=== PATIENT | female | born 1955 | race Caucasian/White ===

== ENCOUNTER → 2017-07-18 | Outpatient (CLI) | payer OTHER ==
[~2017-07-18] MED LIST: ALPRAZOLAM0.25 MG PO; AMLODIPINE BESYL5 MG PO; OMEPRAZOLE40 MG PO; ULTRAM 50MG50 MG PO
--- NOTE | 2017-07-19 07:22 | Diagnostic Imaging Report ---
Exam: Lumbar spine MRI without IV contrast History: Low back pain radiculopathy. Comparison studies: None Technique: Sagittal and axial T2 , sagittal T1 and IR, axial spin density oblique. Intravenous contrast: None Findings: Number of lumbar vertebral bodies: 5. Alignment: Mild hyperlordotic curvature with mild thoracolumbar curvature convex to the left. Minimal grade 1 degenerative retrolisthesis of L1 on 2 and L2 on L3. Soft tissues: No T2 hyperintense inflammatory changes. Paraspinal muscles: Mild symmetric atrophy. Lower thoracic cord: Normal in signal and morphology. The tip of the conus is at the inferior L1 level. Cauda equina: No masses. No arachnoiditis. Vertebrae: No compression fractures, infection or neoplasm. Degenerative changes: T10-T11 through T12-L1: Mildly degenerated disks. Small disc bulges at T11-T12 and at T12-L1 indented thecal sac without significant canal stenosis. Patent foramina. L1-L2: Moderately degenerated disc with associated degenerative endplate changes and mild marrow endplate edema. Minimal retrolisthesis of L1 on L2 with associated uncovered disc/disc bulge and mild facet arthrosis result in mild canal and bilateral foraminal stenosis. There are small facet effusions bilaterally. L2-L3: Mildly degenerated disc. Minimal retrolisthesis of L2 on L3 with associated uncovered disc/disc bulge asymmetric to the right, 7 mm x 5 mm x 10 mm (SI x AP x TV) right subarticular disc extrusion, mildly thickened ligamenta flava and mild facet arthrosis result in mild canal stenosis and mild right foraminal stenosis. Disc extrusion is in position to compress the right L3 nerve root. L3-L4: Mild loss of T2 disc signal. Symmetric disc bulge, thickened ligamentum flavum and facet arthrosis with mild canal stenosis. No significant foraminal stenosis. L4-L5: Mild loss of T2 disc signal. Symmetric disc bulge, moderately thickened ligamentum flavum and moderate bilateral facet arthrosis with severe canal stenosis, severe left foraminal stenosis and mild right foraminal stenosis. Facet arthrosis is with associated bilateral facet synovitis, slightly greater on the left from there is associated reactive marrow edema in the left L4 and L5 articulating pillars and pedicles. L5-S1: Moderately degenerated disc. Minimal grade 1 retrolisthesis of L5 on S1 with associated disc osteophyte complex, 6 mm x 7 mm x 14 mm (SI x AP x TV) calcified central disc extrusion and facet arthrosis with moderate bilateral foraminal stenosis. No significant canal stenosis or nerve root impingement. IMPRESSION: 1. Multilevel disc degeneration, worse/moderate at L1-L2 and at L5-S1. 2. Severe degenerative canal stenosis at L4-L5. 3. Disc extrusion at L2-L3 position to compress the right L3 nerve root. 4. Severe degenerative foraminal stenosis on the left at L4-L5, moderate degenerative foraminal stenosis bilaterally at L5-S1. 5. Multilevel facet arthrosis, worse at L4-L5 where there is associated facet synovitis. Signed by: Dr. Robert Bethea M.D. on 07/19/2017 7:18 AM
== END ==
LOC: MRI 09:46
PROVIDERS: ATTEND Family Medicine
DX: M54.16 Radiculopathy, lumbar region (principal); M47.26 Other spondylosis with radiculopathy, lumbar region
CPT/HCPCS: 72148

== ENCOUNTER → 2018-08-19 | Outpatient (CLI) | payer OTHER | LOC: MAMMO 13:54 | PROVIDERS: ATTEND Family Medicine | DX: Z12.31 Encounter for screening mammogram for malignant neoplasm of breast (principal) | CPT/HCPCS: 77067 ==

== ENCOUNTER → 2020-04-14 | Outpatient (CLI) | payer OTHER | LOC: MAMMO 12:23 | PROVIDERS: ATTEND Family Medicine | DX: Z12.31 Encounter for screening mammogram for malignant neoplasm of breast (principal) | CPT/HCPCS: 77067 ==

== ENCOUNTER → 2021-05-22 | Outpatient (CLI) | payer OTHER | LOC: MAMMO 08:37 | PROVIDERS: ATTEND Family Medicine | DX: Z12.31 Encounter for screening mammogram for malignant neoplasm of breast (principal) | CPT/HCPCS: 77067 ==

== ENCOUNTER → 2023-07-08 | Outpatient (REF) | payer MEDICARE, OTHER | LOC: MAMMO 08:05 | PROVIDERS: ATTEND Family Medicine | DX: Z12.31 Encounter for screening mammogram for malignant neoplasm of breast (principal) | CPT/HCPCS: 77067 ==

== ENCOUNTER → 2024-04-29 | Outpatient (REF) | payer MEDICARE, OTHER ==
[~2024-04-29] MED LIST changes: +METOPROLOL TARTRATE 25 MG TAB ONE; +NITROGLYCERIN 0.4 MG SUBL ONE
[2024-04-29 10:21] LABS: CREATININE, SERUM 0.77 mg/dL (0.57-1.11)
== END ==
LOC: CT 09:27
PROVIDERS: ATTEND Internal Medicine Cardiovascular Disease
DX: R07.9 Chest pain, unspecified (principal)
CPT/HCPCS: 36415; 75574; 82565; 84520

== ENCOUNTER → 2024-09-07 | Outpatient (REF) | payer MEDICARE, OTHER ==
[~2024-09-07] MED LIST changes: -METOPROLOL TARTRATE 25 MG TAB ONE; -NITROGLYCERIN 0.4 MG SUBL ONE
== END ==
LOC: MAMMO 13:06
PROVIDERS: ATTEND Family Medicine
DX: Z12.31 Encounter for screening mammogram for malignant neoplasm of breast (principal)
CPT/HCPCS: 77067